=== PATIENT | female | born 1960 | race Caucasian/White ===

== ENCOUNTER → 2017-08-26 | Outpatient (CLI) | payer OTHER ==
[~2017-08-26] MED LIST: LRT5 PO
== END | disposition home or self-care (01) ==
LOC: C.PAPS 14:51
PROVIDERS: ATTEND Obstetrics & Gynecology
DX: Z12.4 Encounter for screening for malignant neoplasm of cervix (principal)

== ENCOUNTER → 2017-09-08 | Outpatient (CLI) | payer OTHER ==
--- NOTE | 2017-09-08 15:52 | MAMMOGRAPHY REPORT ---
BILATERAL DIGITAL SCREENING MAMMOGRAM TOMOSYNTHESIS WITH CAD: 09/08/2017 CLINICAL HISTORY: Routine screening. Patient has no complaints. TECHNIQUE: Breast tomosynthesis in addition to standard 2D mammography was performed. Current study was also evaluated with a Computer Aided Detection (CAD) system. COMPARISON: Comparison is made to exams dated: 09/22/2015 mammogram, 09/22/2015 stereotactic biopsy, 1 mammogram, 05/18/2015 ultrasound, 04/14/2015 mammogram, and 02/22/2014 mammogram - [facility]. BREAST COMPOSITION: There are scattered areas of fibroglandular density in both breasts. FINDINGS: No suspicious masses, calcifications, or areas of architectural distortion are noted in ei ther breast. There has been no significant interval change compared to prior exams. A biopsy marker clip is again noted within the left 12:00 breast. Bilateral asymmetries are stable compared to prior exams. IMPRESSION: ACR BI-RADS CATEGORY 2: BENIGN There is no mammographic evidence of malignancy. A 1 year screening mammogram is recommended. The pa tient will receive written notification of the results. Approximately 10% of breast cancers are not detected with mammography. A negative mammographic report should not delay biopsy if a clinically suggestive mass is present. Priyanka Garner M.D. /:09/08/2017 12:52:57 Swager Operator: Katie Erazo, [facility] letter sent: Normal 1/2 BI-RADS Code: ACR BI-RADS Category 2: Benign
== END | disposition home or self-care (01) ==
LOC: C.MAMM 12:26
PROVIDERS: ATTEND Obstetrics & Gynecology
DX: Z12.31 Encounter for screening mammogram for malignant neoplasm of breast (principal)

== ENCOUNTER → 2017-11-19 | Outpatient (CLI) | payer OTHER ==
[~2017-11-19] MED LIST changes: +ATEN50TA8 PO; +LEVO112T4 PO; +MULT-506 PO
[2017-11-19 14:30] LABS: BASO % 0.4 %; BASO ABS # 0.03 K/uL (0-0.2); EOS ABS # 0.14 K/uL (0-0.5); HEMATOCRIT 39.6 % (37-47); HEMOGLOBIN 12.9 g/dL (12.0-16.0); IG# 0.02 K/uL (0.00-0.02); LYMPH % 22.5 %; MEAN CELL VOLUME 90.6 fL (80-100); MEAN CORPUSCULAR HEMOGLOBIN 29.5 pg (25-34); MEAN CORPUSCULAR HGB CONC 32.6 g/dl (32-36); MEAN PLATELET VOLUME 9.4 fL (7.4-10.4); MONO % 7.6 %; MONO ABS # 0.54 K/uL (0.11-0.59); NEUT % 67.2 %; NEUT ABS # 4.77 K/uL (1.4-6.5); PLATELET COUNT 296 K/uL (130-400); RED CELL DISTRIBUTION WIDTH CV 12.4 % (11.5-14.5)
== END | disposition home or self-care (01) ==
LOC: C.CPL 13:57
PROVIDERS: ATTEND Obstetrics & Gynecology
DX: Z01.810 Encounter for preprocedural cardiovascular examination (principal); Z01.812 Encounter for preprocedural laboratory examination; N92.5 Other specified irregular menstruation; N84.1 Polyp of cervix uteri

== ENCOUNTER → 2017-11-27 | Day surgery (SDC) | payer OTHER ==
--- NOTE | 2017-11-20 15:15 | HISTORY & PHYSICAL EXAMINATION ---
DATE OF ADMISSION: 11/27/2017 HISTORY OF PRESENT ILLNESS: The patient is a 57-year-old 4, para 4, general health complicated by high blood pressure and hypothyroidism. Her periods stopped in 2012. She has had no bleeding since. She had a large polyp protruding from the cervical os on a pelvic examination. This was followed up by a transvaginal exam on 09/09/2017, which showed an endometrial stripe of 0.8 cm. She is presently being scheduled for an outpatient D and C, polypectomy and hysteroscopy. PAST MEDICAL HISTORY: Four children in good health. ALLERGIES: No known drug allergies. PAST SURGICAL HISTORY: She had her gallbladder removed in 2007. MEDICAL HISTORY: She has high blood pressure, hypothyroidism. SOCIAL HISTORY: No smoking, no excessive alcohol intake. Works at elementary school. FAMILY HISTORY: Mom is 92, has Alzheimer's. Father at age 70, stroke, high blood pressure, myocardial infarction. One sister, two brothers in good health. REVIEW OF SYSTEMS: HEAD: No symptoms of frequent or severe headaches. EYES: No symptoms of blurred vision, double vision. EARS: No symptoms of frequent ear infections, difficulty hearing. NOSE: No symptoms of frequent nosebleeds, difficulty breathing through her nose. THROAT: No symptoms of frequent or severe sore throat, difficulty swallowing. RESPIRATORY: No history of asthma, chest pain, shortness of breath. PHYSICAL EXAMINATION: GENERAL: Well-developed, well-nourished 57-year-old white female, alert, oriented x3 and cooperative, in no acute distress, appeared her stated age. EYES: Conjunctivae are pink. Sclerae white, no evidence of jaundice. EARS: Had normal light reflex bilaterally. NOSE: Had normal mucosa. Septum is midline. There were no polyps. THROAT: Had no erythema or evidence of infection. Teeth are in good state of repair. HEAD: Was normocephalic, normal distribution of hair. NECK: Supple. Trachea midline. Thyroid is not enlarged. There is no adenopathy appreciated. Both carotids are of good intensity. CHEST: Clear to auscultation and percussion. No wheezes, rales or rhonchi appreciated. HEART: Had regular rhythm. S1, S2 are normal. BREASTS: Normal. ABDOMEN: Soft, nontender. PELVIC: Revealed a large polyp protruding from the cervical os on the large stem, which went back up into the endometrial cavity. Bimanual exam revealed a top normal size uterus. There were no adnexal masses appreciated. MUSCULOSKELETAL: Revealed no calf tenderness. IMPRESSIONS OF THIS CASE: High blood pressure, hypothyroidism, status post gallbladder removal and a large endometrial polyp protruding from the external cervical os, abnormal transvaginal ultrasounds. MTDD
[2017-11-21 07:36] VITALS: Ht 154.9 cm; Wt 77.3 kg
[~2017-11-27] VITALS: Ht 154.9 cm; Wt 77.3 kg
[~2017-11-27] MED LIST changes: +DEXAMETHASONE SOD INJ 4 MG/ML VIAL ONE; +FENTANYL CITRATE INJ 50 MCG/1 ML 2 ML VIAL IV PRN; +FENTANYL CITRATE INJ 50 MCG/1 ML 2 ML VIAL ONE; +HYDROCODONE/ACETAMIN 5/325MG TAB PO PRN; +IBUPROFEN 200 MG TAB ONE; +IBUPROFEN 600 MG TAB PO PRN; +KETOROLAC TROMETHAMINE 30 MG/ML VIAL IV. PRN; +KETOROLAC TROMETHAMINE 30 MG/ML VIAL ONE; +LACTATED RINGER'S 1000ML 1,000 ML IV SCH; +LIDOCAINE HCL 2% 2 ML VIAL (20MG/ML) ONE; -LRT5 PO; +MIDAZOLAM HCL 1 MG/ML 2ML VIAL ONE; +NURSING VERBAL MED ORDER ONE; +ONDANSETRON INJ 2 MG/ML 2 ML VIAL IV PRN; +ONDANSETRON INJ 2 MG/ML 2 ML VIAL ONE; +OXYCODONE/ACETAMINOPHEN 5-325 TAB PO PRN; +PROPOFOL IV EMULSION 10 MG/ML 20 ML VIAL IV ONE; +SODIUM CHLORIDE 0.9% 1000ML 1,000 ML IV SCH
--- NOTE | 2017-11-27 13:21 | History & Physical Bridge Note ---
H&P Re-Evaluation Bridge Note: I have examined the patient, reviewed the History & Physical and in the interval since the performance of the History & Physical I have noted the following changes of clinical significance: No changes noted
--- NOTE | 2017-11-27 13:53 | [facility] Post Operative Brief Note ---
Immediate Operative Summary Operative Date Nov 27, 2017. Pre-Operative Diagnosis Dysfunctional Uterine Bleeding, Large Polyp Post-Operative Diagnosis same Procedure(s) Performed hysteroscopy polypectomy dilatation of cervix sharp curretage of endometrial cavity Surgeon Dr. Hannah Ferrer Patients Transporter Surgeon(s) 0 Estimated Blood Loss 10 ml Findings Consistent with Post-Op Diagnosis Specimens A. Drains None Anesthesia Type General Complication(s) none Disposition Disposition: Recovery Room / PACU
--- NOTE | 2017-11-27 14:03 | Discharge Instructions-SurgCtr ---
Discharge Instructions Date of Service Nov 27, 2017. Visit Reason for Visit: Dysfunctional Bleeding, Large Cervical Polyp Discharge Discharge Diagnosis / Problem: large endometrial polyp Discharge Goals Goal(s): Learn about illness, Therapeutic intervention Activity Recommendations Activity Limitations: as noted below ACTIVITY RECOMMENDATIONS: * Avoid tampons, douching, hot tubs, pools, and intercourse until bleeding has stopped. * May shower as usual. * No strenuous activity for 24-48 hours. After 24-48 hours, you may do anything you feel like doing (driving and sports are okay). SPECIAL CARE INSTRUCTIONS: Special Diet: * Mild nausea may occur in the immediate post-operative period. * Take clear liquids such as tea, cola or bouillon until all nausea has subsided; you may then resume your normal diet. Special Care: * Light bleeding and vaginal spotting can last from a few days to 3-4 weeks. Call your doctor if bleeding becomes heavier than the heaviest part of your period. * Check your temperature twice a day for one week. If it goes above 100.4 degrees Fahrenheit (38.0 Celsius), notify your doctor. * Call your doctor's office for an appointment for 6 weeks after your surgery. FOLLOW-UP VISIT: Call your doctor's office for an appointment for 6 weeks after your surgery. Anesthesia . Post Anesthesia Instructions: If you have had General Anesthesia or IV Sedation: * Do not drive today. * Resume driving when surgeon permits. * Do not make important decisions or sign legal documents today. * Call surgeon for: 1. Temperature elevations greater than 101 degrees F. 2. Uncontrollable pain. 3. Excessive bleeding. 4. Persistent nausea and vomiting. 5. Medication intolerance (nausea, vomiting or rash). * For nausea and vomiting use only clear liquids such as: tea, soda, bouillon until nausea subsides, then gradually increase diet as tolerated. * If you have any concerns or questions, call your surgeon's office. If physician is unavailable and it is an emergency, call 911 or go to the nearest emergency room. . Instructions / Follow-Up Instructions / Follow-Up ACTIVITY RECOMMENDATIONS: * Avoid tampons, douching, hot tubs, pools, and intercourse until bleeding has stopped. * May shower as usual. * No strenuous activity for 24-48 hours. After 24-48 hours, you may do anything you feel like doing (driving and sports are okay). SPECIAL CARE INSTRUCTIONS: Special Diet: * Mild nausea may occur in the immediate post-operative period. * Take clear liquids such as tea, cola or bouillon until all nausea has subsided; you may then resume your normal diet. Special Care: * Light bleeding and vaginal spotting can last from a few days to 3-4 weeks. Call your doctor if bleeding becomes heavier than the heaviest part of your period. * Check your temperature twice a day for one week. If it goes above 100.4 degrees Fahrenheit (38.0 Celsius), notify your doctor. * Call your doctor's office for an appointment for 6 weeks after your surgery. FOLLOW-UP VISIT: Call your doctor's office for an appointment for 6 weeks after your surgery. Diet Recommendations Home Diet: resume previous diet Procedures Procedures Performed: hysteroscopy polypectomy dilatation of cervix sharp curretage of endometrial cavity Pending Studies Studies pending at discharge: no Medical Emergencies . Who to Call and When: Medical Emergencies: If at any time you feel your situation is an emergency, please call 911 immediately. . Non-Emergent Contact Non-Emergency issues call your: Speech And Language Tutor Call Non-Emergent contact if: temperature is above 100.5 . . "Provider Documentation" section prepared by Gaurav Ferrer. .
--- NOTE | 2017-11-27 14:35 | OPERATIVE REPORT ---
DATE OF OPERATION: 11/27/2017 PROCEDURES: D and C, polypectomy, hysteroscopy. INDICATIONS FOR SURGERY: Pelvic cramps and discomfort. PREOPERATIVE DIAGNOSIS: Large symptomatic endometrial polyp. POSTOPERATIVE DIAGNOSIS: Same. PATHOLOGY: Pending. An additional endometrial polyp removed. SURGEON: Dr. Ferrer. ESTIMATED BLOOD LOSS: 10 mL. ANESTHESIA: General. OPERATIVE FINDINGS AND PROCEDURE: The patient was brought to the OR table, correctly identified by armband and conversation. General anesthesia was administered. Perineum and vagina were painted with Betadine paint, draped in usual sterile fashion. Catheter was used to empty the bladder. Careful pelvic exam under anesthesia revealed a normal size anteverted uterus. Weighted speculum was placed posterior vagina. Anterior lip of the cervix grasped with a single-tooth tenaculum. There was a large polyp protruding from the external cervical os. The part that could be seen was estimated to be 1.5 x 1.5 cm. It was grasped with a ring forceps and then twisted until the base twisted off. It removed the specimen at least 3-4 cm along on a large pedicle. This was submitted for pathological evaluation. The cervix was then dilated and hysteroscope was placed in the uterine cavity. You could see both tubal ostia. The base of the removed polyp was on the patient's right side. There was also a small polyp on the patient's left side that was on the pedicle. We were able to remove that by going blindly with an ovum forceps reaching into the left adnexal area anterior and then grabbing it, removing it. We then rescoped her and found out the polyp was gone, we had removed it. Then, I did a thorough and systematic curettage of the entire endometrial cavity, I got virtually no tissue, I then rescoped her at the end of the curettage. Everything looked good. The polyps had been removed. They had all been submitted for pathological evaluation. Hemostasis was good. The patient tolerated the procedure well and left the OR in good condition. I attest to the content of the Intraoperative Record and any orders documented therein. Any exception s are noted below.
[2017-11-27 15:11] VITALS: TEMP 36.6
[2017-11-27 15:42] VITALS: BP 129/84; PULSE 78; O2SAT 96
--- NOTE | 2017-11-27 15:49 | Anesthesia Progress Nt - [facility] ---
Anesthesia Post Op Note Date & Time Nov 27, 2017 at 15:49 Vital Signs Pain Intensity: 3.0 Vital Signs Past 12 Hours Date Time Temp Pulse Resp B/P (MAP) Pulse Ox O2 Delivery O2 Flow Rate FiO2 11/27/17 15:42 78 129/84 (99) 96 Room Air 11/27/17 15:11 36.6 78 153/85 (107) 99 Room Air 11/27/17 14:45 36.6 76 16 122/67 99 Room Air 11/27/17 13:59 36.4 76 12 124/88 98 Mask 6 11/27/17 12:33 36.9 79 18 98 Room Air Notes Mental Status: alert / awake / arousable, participated in evaluation Pt Amnestic to Procedure: Yes Nausea / Vomiting: adequately controlled Pain: adequately controlled Airway Patency, RR, SpO2: stable & adequate BP & HR: stable & adequate Hydration State: stable & adequate Anesthetic Complications: no major complications apparent
== END | disposition home or self-care (01) ==
LOC: X.SURG 12:03
PROVIDERS: ATTEND Obstetrics & Gynecology
DX: N84.0 Polyp of corpus uteri (principal); N93.8 Other specified abnormal uterine and vaginal bleeding; E03.9 Hypothyroidism, unspecified; Z90.49 Acquired absence of other specified parts of digestive tract; Z82.3 Family history of stroke; Z82.49 Family history of ischemic heart disease and other diseases of the circulatory system